=== PATIENT | female | born 1935 | race Caucasian/White ===

== ENCOUNTER 2021-05-22 03:18 | Outpatient (CLI) | payer MEDICARE, SELFPAY ==
[2021-05-22 10:47] LABS: Source Nasal/Nares
[2021-05-22 15:01] LABS: COVID-19 PCR Negative (Negative)
== END 2021-05-22 03:19 | disposition home or self-care (01) ==
LOC: LBO 03:18
PROVIDERS: PCP Nurse Practitioner Family; Visit Provider Ophthalmology
DX: Z20.822 Contact with and (suspected) exposure to COVID-19 (principal); Z01.818 Encounter for other preprocedural examination
CPT/HCPCS: 87635

== ENCOUNTER 2021-05-25 08:36 | Day surgery (SDC) | payer MEDICARE, SELFPAY ==
--- NOTE | 2021-05-25 06:35 | W.ANESPRE ---
General Info Date of Service Date Performed: 05/25/21 Height: 5 ft 1 in Weight: 60.35 kg Body Mass Index (BMI): 25.1 Surgical Procedure: Operation Date: 05/25/21 11:40 Proposed Procedures Side Surgeon p Cataract Extraction with IOL Implant Right Waylon Conde MD Meds Allergies and Home Medications Allergies Allergy/AdvReac Type Severity Reaction Status Date / Time Iodinated Contrast Media Allergy Severe Verified 05/22/21 12:01 [Iodinated Contrast- Oral and IV Dye] Latex, Natural Rubber Allergy Intermediate rash Verified 05/22/21 12:01 cigarette smoke Allergy Mild Verified 05/22/21 12:01 house dust Allergy Mild Verified 05/22/21 12:01 Home Medication Medication Instructions Recorded acetaminophen 500 mg tablet 1,000 mg PO DIRECTED PRN tab 10/03/18 betamethasone dipropionate 0.05 % 1 applic TP DAILY 10/03/18 lotion estradiol 0.5 mg tablet 0.25 mg PO DAILY tab 10/03/18 meloxicam 15 mg tablet 15 mg PO DAILY 10/03/18 psyllium 1 packet PO TID 10/03/18 triamcinolone acetonide 0.5 % 1 applic TP BID 10/03/18 topical cream albuterol sulfate [ProAir HFA] 2 puff INHALATION Q4H PRN 05/22/21 cetirizine 10 mg PO DAILY 05/22/21 fluticasone propion-salmeterol 2 ea INHALATION DAILY 05/22/21 multivitamin 1 tab PO DAILY 05/22/21 omega-3 fatty acids [Fish Oil] 1 cap PO DAILY 05/22/21 Current Visit Medications: Current Medications Generic Name Dose Route Start Last Admin Trade Name Freq PRN Reason Stop Dose Admin Acetaminophen 1,000 mg 05/25/21 06:00 Acetaminophen 500 Mg Tab PO Q4H PRN PRN Miscellaneous Medication 0 ml 05/25/21 06:00 Prednisolone 1%, Moxifloxacin 0.5%, Nepafenac 0.1% 5ml Btl OD DIRECTED [facility] Miscellaneous Medication 0 ml 05/25/21 06:00 Tropicam./Phenyleph. 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 Headache Hemoptysis Hemorrhoids History of bone density study Idiopathic osteoarthritis Left hip pain Pain Palpitations Perimenopausal disorder Post concussion syndrome Pulmonary emphysema Right fibular fracture Screening for cardiovascular condition Sleep disorder Surgical History Surgical History History of total hip arthroplasty Hx of appendectomy Tobacco Smoking/Tobacco Use Status: Never Alcohol Alcohol Intake: never Substance Use Substance use: Never Substance use type: does not use Vital Signs and Lab Results Lab Results Blood Type / Crossmatch: No Data to Display Complete Blood Count: No Data to Display Complete Metabolic Panel: No Data to Display Liver Function Panel: No Data to Display Coagulation Panel: No Data to Display Cardiac Panel: No Data to Display Arterial Blood Gas: No Data to Display Venous Blood Gas: No Data to Display Pancreas Panel: No Data to Display Thyroid Panel: No Data to Display Infectious Disease: Coronavirus (COVID-19)(PCR) Negative (Negative) 05/22/21 09:04 05/22/21 Coronavirus 2019 Source Nasal/Nares 05/22/21 09:04 05/22/21 Blood Cultures: No Data to Display Toxicology Panel: No Data to Display Anesthesia Assessment and Plan Anesthesia History Personal History: No History of Anesthesia Complications Family History: No Family History of Anesthesia Complications Exercise Tolerance Exercise Tolerance: Metabolic Equivalents>4 Cardiac & Pulmonary Exam Cardiac Exam: Normal S1/S2 Heart Sounds Pulmonary Exam: Clear Bilateral Breath Sounds Implantable Cardiac Device Does patient have a Pacemaker or an ICD?: No Airway Exam Known Difficult Airway: No Mallampati Class: 2 Mouth Opening: Normal (> 3cm) Thyromental Distance: Greater than 3 cm Neck Range of Motion: Full ROM Neck Circumference: Normal Teeth Condition: Removable Dentures/Plates Lower ASA Classification ASA Score: ASA 2 Emergency Case?: No NPO Status NPO Status: NPO Clears >2 hours, Solids >8 hours Anesthesia Plan Resuscitation Status: Full Code Anesthesia Technique: MAC Anesthesia Airway Planned: Natural Airway Monitors Used: Standard Monitors Preoperative Comments:: 86 yo female for cataract removal. Sig PMHx: asthma (albut/fluticasone/salmeterol), palpitations, emphysema, never smoker, never EtOH. Discussed risks, benefits, alternatives to MKO vs IV. She wants to hear and remember nothing. We discussed that this is not a possibility unless we did GA. We discussed that GA for this is not the best option for her, she understands. We will plan on placing a lock IV and giving sedation as needed.
[2021-05-25 09:22] VITALS: BP 162/84; PULSE 78; RESP 16; TEMP 36.6; O2SAT 98
[2021-05-25 09:30] VITALS: BMI 25.1
[2021-05-25] MEDS: Tropicam./Phenyleph. (1/2.5%) 5 ML BTL OD ×3 (09:37→09:51)
[2021-05-25] MEDS: Normal Saline Flush 10 ML SYR IVP (10:05)
[2021-05-25] MEDS: Tetracaine 0.5% 4 ML BTL OD (10:14)
[2021-05-25] MEDS: Lidocaine 1% Pres-Free 5 ML VIAL (10:14)
[2021-05-25] MEDS: Lidocaine 2% Jelly 6 ML SYR (10:15)
[2021-05-25] MEDS: Normal Saline 250 ML 30 ML IV (10:15)
[2021-05-25] MEDS: Balanced Salt Soln.-PLUS 500 ML BAG (10:25)
[2021-05-25] MEDS: Duovisc Viscoelastic System EACH 1 EACH (10:26)
[2021-05-25] MEDS: Povidone-Iodine Ophth 30 ML BTL (10:28)
[2021-05-25 10:45] VITALS: BP 161/76; PULSE 72; RESP 16; TEMP 36.3; O2SAT 96
--- NOTE | 2021-05-25 10:46 | ROE_ITS ---
Date of service: 05/25/21 Time of Service: 10:46 Operative Note Operative Note DATE OF PROCEDURE: 05/25/21 PRE-OP DIAGNOSIS: Nuclear cataract, right eye POST-OP DIAGNOSIS: same PROCEDURE: Cataract extraction using phacoemulsification with intraocular lens implant, right eye SURGEON: Waylon Conde ANESTHESIA TYPE: Local By Surgeon and MAC Refer to Anesthesia Record ESTIMATED BLOOD LOSS: 0 PATHOLOGY: none sent COMPLICATIONS: None Patient was transported to: same day Patient's condition: stable Implants: Bony & Bony/SERGEI Tecnis [id number] Indications: Progressive visual loss due to cataract, right eye Procedure Description: CATARACT SURGERY OPERATIVE REPORT PREOPERATIVE DIAGNOSIS: 1. Nuclear cataract, right eye POSTOPERATIVE DIAGNOSIS: Same OPERATION: 1. Cataract extraction using phacoemulsification with posterior chamber intraocular lens implant, right eye. IOL: IOL Systems Administration Analyst/Model: Bony & Bony / SERGEI Tecnis [id number] IOL Power: + 20.0 diopters IOL Serial Number: [id number] Optic Diameter: 6.0mm Haptic/Overall Diameter: 13.0mm PHACO INFO: JoeSevenpopurion Vision System with OZil and Active Fluidics Cumulative Dispersed Energy (CDE): 13.77 seconds SURGEON: Waylon Conde MD, LUIZ ANESTHESIA: Monitored Anesthesia Care (MAC), with local sub-tenon's anesthetic infiltration COMPLICATIONS: None SPECIMENS: None INDICATIONS FOR PROCEDURE: The patient is an 86-year-old lady with history of diminished visual acuity in h er right eye secondary to the development of nuclear cataract. She has previously undergone cataract surgery in the left eye in 2013. Postoperative visual acuity in the left eye is limited by the presence of pre-existing epiretinal membrane. She now presents for cataract surgery in the right eye. PROCEDURE: The correct surgical eye was identified and marked as the right eye and the pupil was dilated in the preoperative area using mydriatics and cycloplegics. The dilated pupil size was 8.0 mm. IV sedation was administered in the form of 0.5 mg Versed. The patient was brought to the operating room where cardiopulmonary monitoring was instituted and surgical time-out was performed, confirming the correct operative eye and IOL power. Topical anesthesia was administered and ophthalmic povidone-iodine 5% was instilled into the conjunctival fornices. Lidocaine gel was applied to the cornea and the melo-ocular area was prepped with Betadine 10% solution and drap ed in the usual sterile fashion for intraocular surgery, including an aperture drape. A Tegaderm transparent film dressing was cut in half and used to cover the lashes and lid margins. Care was taken to sequester the lashes and lid margins under the Tegaderm dressing. A lid speculum was placed between the lids of the operative eye and the Malka-Bo operating microscope was maneuvered into position. Inez scissors were then used to make a conjunctival buttonhole approximately 6mm posterior to the limbus in the inferonasal quadrant. Blunt dissection was carried out to expose bare sclera, and a blunt-tipped sub-tenon?s anesthesia cannula was introduced and passed posteriorly along the globe where non- preserved plain lidocaine was injected into posterior sub-Tenon?s space. A sideport knife was used to make a paracentesis port inferotemporally. Intraocular phenylephrine/lidocaine was injected into the anterior chamber. The anterior chamber was filled with viscoelastic. A 2.4mm keratome knife was used to create a half-thickness groove at the limbus and then to construct a three- plane near-clear corneal tunnel extending 2.0mm into clear cornea superiortemporally. A flap was raised on the anterior capsule and capsulorhexis forceps were used to complete a continuous curvilinear capsulorhexis of 5.5 mm. Balanced salt solution was then used to perform cortical cleaving hydro dissection and nuclear hydrodelineation until the lens could be freely rotated within the capsular bag. The lens nucleus was then disassembled and removed within the capsular bag and iris plane using phacoemulsification. Residual cortical material was removed using the I/A handpiece. The posterior capsule was carefully polished to remove as much residual lens epithelial cells as safely possible. The capsular bag was then inflated and the anterior chamber deepened with viscoelastic. The lens implant described above was inserted into the capsular bag using the SERGEI [place] Injector. A Kuglen hook was used to dial the IOL into position. Residual viscoelastic was then removed first from posterior to the IOL, then from the anterior chamber using the I/A handpiece. The lens implant was noted to center nicely within the capsular bag. The incisions were stromally hydrated, and the anterior chamber was reformed using BSS. Then 0.5cc of moxifloxacin 1.0mg/ml were injected into the capsular bag and anterior chamber. The incisions were checked with a Weck spear and found to be secure. Several drops of ophthalmic povidone-iodine 5% were then applied to the eye followed by two drops of Imprimis combination prednisolone/moxifloxacin/nepafenac solution. The drapes were removed and a clear plastic protective eye shield was placed over the eye. The patient was then returned to Same Day Surgery in stable condition.
--- NOTE | 2021-05-25 10:46 | W.PM.DSUDISC ---
Discharge Plan Disposition Patient Disposition: HOME Condition: Good Discharge Details Attending Provider: Waylon Conde Primary Care Provider: Connor Alvarez Home Meds and New Rx's Prescriptions: No Action betamethasone dipropionate 0.05 % lotion 1 applic TP DAILY RF: 0 estradiol 0.5 mg tablet 0.25 mg PO DAILY RF: 0 psyllium packet 1 packet PO TID RF: 0 triamcinolone acetonide 0.5 % cream 1 applic TP BID RF: 0 acetaminophen [Tylenol Extra Strength] 500 mg tablet 1,000 mg PO DIRECTED PRNRF: 0 multivitamin Tablet 1 tab PO DAILY RF: 0 cetirizine 10 mg Tablet 10 mg PO DAILY RF: 0 fluticasone propion-salmeterol 100-50 mcg/dose blister with device 2 ea INHALATION DAILY RF: 0 albuterol sulfate [ProAir HFA] 90 mcg/actuation Hfa Aerosol Inhaler 2 puff INHALATION Q4H PRNRF: 0 Fish Oil Capsule 1 cap PO DAILY RF: 0 cyclobenzaprine 5 mg tablet 5 mg PO TID RF: 0 Discharge Instructions Stand Alone Forms: Post-op Topical Cataract, Abdiel Davies (DSU) Discharge Orders Discharge Orders: Discharge Order (Routine); Ordered 05/25/21 Ordered By: Waylon Conde DS: Diagnosis Discharge Diagnosis (1) Nuclear sclerotic cataract of right eye: Status: Resolved
--- NOTE | 2021-05-25 10:58 | W.ANESPOSTOP ---
Postoperative Evaluation Date, Time and Location Date Performed: 05/25/21 Time Performed: 10:58 Patient Location: Day Surgery Unit Vital Signs Most Recent Imported Vital Signs: Most Recent Vital Signs Temp Pulse Resp BP Pulse Ox 36.3 C L 72 16 161/76 H 96 05/25/21 10:45 05/25/21 10:45 05/25/21 10:45 05/25/21 10:45 05/25/21 10:45 Pain Score Most Recent Pain Score: Most Recent Pain Score Pain Level 0 05/25/21 10:45 Assessment Mental Status: Awake (Alert & Oriented to Patient Baseline) Airway and Respiratory Function: Patent airway with normal (patient baseline) respiratory exam Cardiovascular Function: Hemodynamically Stable Hydration Status: Adequately Hydrated Nausea & Vomiting: No Nausea or Vomiting Pain: Pt. Denies Any Pain Peripheral Nerve Block: Patient did not receive a nerve block
[2021-05-25 11:14] VITALS: BP 151/73; PULSE 82; RESP 16; TEMP 36.6; O2SAT 96
== END 2021-05-25 11:21 | disposition home or self-care (01) ==
PROVIDERS: PCP Nurse Practitioner Family; Visit Provider Ophthalmology
PROC: (CPT 66984; principal; 2021-05-25 11:30)
DX: H25.11 Age-related nuclear cataract, right eye (principal); J43.9 Emphysema, unspecified; J45.909 Unspecified asthma, uncomplicated
CPT/HCPCS: 66984; V2632; J2250

== ENCOUNTER 2022-04-20 17:34 | Emergency (ER) | payer MEDICARE, SELFPAY ==
[2022-04-20] VITALS (29 sets, daily range): BP systolic 104–175; BP diastolic 49–102; PULSE 72–97; RESP 15–31; TEMP 36.4–36.8; O2SAT 91–96
--- NOTE | 2022-04-20 18:23 | ED.GENADUL_ITS ---
Discharge Plan Disposition Patient Disposition: HOME Condition: Stable Discharge Details Clinical Impression: COVID Primary Care Provider: Connor Alvarez ED Provider: Sagar Reveles Home Meds and New Rx's Prescriptions: New prednisone 20 mg tablet 60 mg PO DAILY 4 Days Qty: 12 0RF Continued meloxicam 7.5 mg tablet 7.5 mg PO DAILY acetaminophen [Tylenol Extra Strength] 500 mg tablet 1,000 mg PO DIRECTED PRN amoxicillin-pot clavulanate [Augmentin] 500-125 mg tablet 1 tab PO BID Qty: 14 0RF multivitamin Tablet 1 tab PO DAILY fluticasone propion-salmeterol 100-50 mcg/dose blister with device 2 ea INHALATION DAILY Label Comments: INHALE ONE PUFF BY MOUTH TWICE A DAY albuterol sulfate [ProAir HFA] 90 mcg/actuation Hfa Aerosol Inhaler 2 puff INHALATION Q4H PRN omega-3 fatty acids Capsule 1 cap PO DAILY Discharge Instructions Instructions: COVID-19 (Coronavirus Disease 2019) (ED) Additional Instructions: follow up with your primary care provider if not improving in a week if you feel more ill, have severe worsening pain or difficulty breathing return to the emergency department Medical Decision Making 87 yo female with hx of asthma and bronchiectasis and has had 4 covid vaccines comes in with cc of cough for a week and has had two at home positive covid tests. Denies dyspnea, fevers, chills, n/v, chest pain. She was started on augmentin because of her history by her production maintenance technician and still has a cough so was referred here for mab infusion. She arrives stable speaking in full sentences, caox4 in no distress, does have intermittent dry cough during exam. No significant wheezing on exam, no crackles, no jvd and no leg swelling or calf tenderness. Given her home positive tests and symptoms will treat with mab as she is not in the window for treatment with paxlovid but is in the window for mab and she consents to this. She has normal oxygenation and appears well and no focal lung findings so doubt sepsis or pneumonia and is already on augmentin. Will reassess after mab. Given her persistent cough will trial short course of prednisone given her asthma history pt tolerated infusion if she is stable throughout observation period plan for d/c and will f/u with pcp/production maintenance technician, return precautions given Differential Diagnosis Differential Diagnosis: covid, asthma Medical Records Medical records reviewed: Yes I reviewed the patient's medical records. HPI General Mode of arrival: ambulatory . Date/Time Provider Initiated Documentation: 04/20/22 17:46 . Limitations to Documentation: no limitations . Information obtained by: patient . History of Present Illness 87 year old F presents to the emergency department with the chief complaint of cough, described as moderate, Patient started experiencing this week(s) (1) and it has been constant and intermittent. No relieving factors improve symptom(s), No exacerbating factors reported . Patient did receive the following treatments prior to arrival, none Related Data Home Medications Medication Instructions Recorded Confirmed acetaminophen 500 mg tablet 1,000 mg PO DIRECTED PRN 10/03/18 04/20/22 (Tylenol Extra Strength) albuterol sulfate 90 mcg/actuation 2 puff inhalation Q4H PRN 05/22/21 04/20/22 aerosol inhaler (ProAir HFA) fluticasone 100 mcg-salmeterol 50 2 ea inhalation DAILY 05/22/21 04/20/22 mcg/dose blistr powdr for inhalation multivitamin 1 tab PO DAILY 05/22/21 04/20/22 omega-3 fatty acids 1 cap PO DAILY 05/22/21 04/20/22 meloxicam 7.5 mg tablet 7.5 mg PO DAILY 02/23/22 04/20/22 amoxicillin 500 mg-potassium 1 tab PO BID #14 tabs 04/19/22 04/20/22 clavulanate 125 mg tablet (Augmentin) prednisone 20 mg tablet 60 mg PO DAILY 4 days #12 tabs 04/20/22 Previous Rx's Medication Instructions Recorded amoxicillin 500 mg-potassium 1 tab PO BID #14 tabs 04/19/22 clavulanate 125 mg tablet (Augmentin) prednisone 20 mg tablet 60 mg PO DAILY 4 days #12 tabs 04/20/22 Allergies Allergy/AdvReac Type Severity Reaction Status Date / Time Iodinated Contrast Media Allergy Severe Verified 04/20/22 18:10 [Iodinated Contrast- Oral and IV Dye] Latex, Natural Rubber Allergy Intermediate rash Verified 04/20/22 18:10 cigarette smoke Allergy Mild Verified 04/20/22 18:10 house dust Allergy Mild Verified 04/20/22 18:10 General Stated Complaint: GenMedical SUSHIL: 3 Review of Systems All systems reviewed & are unremarkable except as noted in HPI and below Constitutional Constitutional: Denies chills and Denies fever(s) Cardiovascular Cardiovascular: Denies chest pain Gastrointestinal Gastrointestinal: Denies abdominal pain, Denies nausea and Denies vomiting Integumentary/Breasts Skin/Breast: Denies rash PFSH All Active Problems (Updated 04/20/22 @ 18:29 by Sagar Reveles MD) COVID (Acute) Bronchiectasis (Acute) Asthma (Chronic) Sarcoidosis (Acute) Medical History (Updated 04/20/22 @ 18:29 by Sagar Reveles MD) Abnormal finding on breast imaging Acquired trigger finger Acute bronchitis Benign paroxysmal positional vertigo Closed fracture of lateral malleolus of fibula Diabetes mellitus screening 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 Headache Hemoptysis Hemorrhoids History of bone density study Idiopathic osteoarthritis Left hip pain Pain Palpitations Perimenopausal disorder Post concussion syndrome Pulmonary emphysema Right fibular fracture Screening for cardiovascular condition Sleep disorder Surgical History (Updated 05/25/21 @ 10:46 by Waylon Conde MD) History of bunionectomy bilateral foot History of total hip arthroplasty bilateral Hx of appendectomy Family History (Updated 12/25/21 @ 14:33 by Janeth Vega) Father Lung disease Mother Diabetes Brother Heart disease Sister Breast cancer Daughter Fibromyalgia Social History (Updated 10/03/18 @ 14:53 by Deisy Christie LPN) Smoking/Tobacco Use Status: Never Smoking risk assessment performed?: Yes Alcohol Intake: never Drug use: Never Substance use type: does not use Do you feel safe at home: Yes Do you feel safe in your relationship?: Yes Exam Const General: no acute distress Orientation: alert HENMT Head: normal to inspection Ears: external ears normal General nose exam: external nose normal Mouth: moist mucous membranes Eyes General: appearance normal, both eyes and all related structures Neck Neck: normal visual inspection Resp Effort & Inspection: normal respiratory effort and able to speak in complete sentences Cardio Rate: regular rate Skin General skin exam: no rashes or lesions noted Neuro General: patient alert and patient oriented x3 Extrem General: normal to inspection Psych Mental Status: mental status grossly normal Course Vital Signs Vital signs: Vital Signs Temperature 36.4 C 04/20/22 18:05 Pulse 83 04/20/22 18:05 Respiratory Rate 26 H 04/20/22 18:05 Blood Pressure 175/75 H 04/20/22 18:05 Pulse Oximetry 96 04/20/22 18:05 Temperature 36.4 C 04/20/22 18:05 Temperature Source Oral 04/20/22 18:05 Pulse 83 04/20/22 18:05 Respiratory Rate 26 H 04/20/22 18:05 Respiratory Effort Non-Labored 04/20/22 18:12 Blood Pressure 175/75 H 04/20/22 18:05 Blood Pressure Position Sitting 04/20/22 18:05 Pulse Oximetry 96 04/20/22 18:05 Oxygen Delivery Method Room Air 04/20/22 18:05 Oxygen Flow Rate 0 04/20/22 18:05 Pain Level 0 04/20/22 18:05
[2022-04-20] MEDS: predniSONE 20 MG TAB (21:37)
== END 2022-04-20 22:01 | disposition home or self-care (01) ==
PROVIDERS: Emergency Provider Emergency Medicine; PCP Nurse Practitioner Family
DX: U07.1 COVID-19 (principal)
CPT/HCPCS: 96361; 96374; 99284; Q0222; J7512

== ENCOUNTER → 2023-04-20 09:10 | Outpatient (BNVA) | payer MEDICARE, SELFPAY | PROVIDERS: PCP Nurse Practitioner Family; Referring Provider Nurse Practitioner Family; Visit Provider Physician Assistant Surgical | DX: D86.9 Sarcoidosis, unspecified (principal); J45.909 Unspecified asthma, uncomplicated; J47.9 Bronchiectasis, uncomplicated; J96.91 Respiratory failure, unspecified with hypoxia | CPT/HCPCS: 99214 ==

== ENCOUNTER → 2023-06-23 12:55 | Outpatient (BNVA) | payer MEDICARE, SELFPAY | PROVIDERS: PCP Nurse Practitioner Family; Referring Provider Nurse Practitioner Family; Visit Provider Student in an Organized Health Care Education/Training Program | DX: D86.9 Sarcoidosis, unspecified (principal); Z79.51 Long term (current) use of inhaled steroids; J45.909 Unspecified asthma, uncomplicated; Z79.899 Other long term (current) drug therapy; J47.9 Bronchiectasis, uncomplicated; J96.91 Respiratory failure, unspecified with hypoxia | CPT/HCPCS: 99214 ==

== ENCOUNTER → 2023-11-04 09:16 | Outpatient (BNVA) | payer MEDICARE, SELFPAY | PROVIDERS: PCP Nurse Practitioner Family; Referring Provider Nurse Practitioner Family; Visit Provider Student in an Organized Health Care Education/Training Program | DX: D86.9 Sarcoidosis, unspecified (principal); J45.909 Unspecified asthma, uncomplicated; J47.9 Bronchiectasis, uncomplicated; J96.91 Respiratory failure, unspecified with hypoxia; R04.2 Hemoptysis | CPT/HCPCS: 99214 ==

== ENCOUNTER → 2023-11-11 12:34 | Outpatient (BNVA) | payer MEDICARE, SELFPAY | PROVIDERS: PCP Nurse Practitioner Family; Referring Provider Nurse Practitioner Family; Visit Provider Student in an Organized Health Care Education/Training Program | DX: D86.9 Sarcoidosis, unspecified (principal); J45.909 Unspecified asthma, uncomplicated; J47.9 Bronchiectasis, uncomplicated; J96.91 Respiratory failure, unspecified with hypoxia | CPT/HCPCS: 99214 ==